=== PATIENT | male | born 1950 | race Caucasian/White ===

== ENCOUNTER 2023-02-21 07:40 | Outpatient (CLI) | payer MEDICARE, BC | END 2023-02-21 07:41 | disposition home or self-care (01) | LOC: CSHULT 07:40 | PROVIDERS: ATTEND Family Medicine | DX: Z13.6 Encounter for screening for cardiovascular disorders (principal) | CPT/HCPCS: 76706 ==

== ENCOUNTER 2023-08-13 07:51 | Outpatient (CLI) | payer MEDICARE, BC ==
[2023-08-13] MEDS ORDERED: Iopamidol 370 76% 100 ML VIAL ONE (08:55)
== END 2023-08-13 07:52 | disposition home or self-care (01) ==
LOC: CSHCT 07:51
PROVIDERS: ATTEND Family Medicine
DX: R10.9 Unspecified abdominal pain (principal); N28.1 Cyst of kidney, acquired; K76.89 Other specified diseases of liver; Z98.890 Other specified postprocedural states; K44.9 Diaphragmatic hernia without obstruction or gangrene
CPT/HCPCS: 74178; 82565; Q9967

== ENCOUNTER 2024-02-20 10:49 | Outpatient (CLI) | payer MEDICARE, BC ==
[2024-02-20 12:34] LABS: Hematocrit 40.4 % (38.8-50.0); Hemoglobin 13.2 g/dL (13.5-17.5); Mean Corpuscular HGB CONC 32.7 g/dL (32.0-36.0); Mean Corpuscular Hemoglobin 31.1 pg (27.0-33.0); Mean Corpuscular Volume 95.3 fL (81.2-95.1); Platelet Count 202 10x3/uL (150-450); RBC Distribution Width 12.4 % (11.5-14.5); Red Blood Cell (RBC) Count 4.24 10x6/uL (4.32-5.72); White Blood Cell (WBC) Count 5.5 10x3/uL (3.5-10.5)
[2024-02-20 12:47] LABS: Anion Gap 11 mmol/L (10-20); BUN (Urea Nitrogen) 14 mg/dL (8.4-25.7); Calc. Creatinine Clearance 0 mL/min (70-130); Calcium 9.2 mg/dL (7.8-10.44); Carbon Dioxide 28 mmol/L (23-31); Chloride 108 mmol/L (98-107); Estimated GFR 94; Glucose 84 mg/dL (83-110); Potassium 4.2 mmol/L (3.5-5.1); Sodium 143 mmol/L (136-145)
== END 2024-02-20 10:50 | disposition home or self-care (01) ==
LOC: CSHLAB 10:49
PROVIDERS: ATTEND Specialist
DX: Z01.818 Encounter for other preprocedural examination (principal)
CPT/HCPCS: 80048; 85027; 93005; 93010

== ENCOUNTER 2024-02-27 10:11 | Day surgery (SDC) | payer MEDICARE, BC ==
[2024-02-20 11:22] VITALS: BMI 34.5
[2024-02-27] MEDS ORDERED: AFRIN NASAL MIST 15 ML BOT ONE ×2 (10:58→13:01)
[2024-02-27] MEDS ORDERED: Oxymetazoline HCl 0.05% ( 15 ML ) ONE (11:20)
[2024-02-27] MEDS ORDERED: Famotidine/PF 20 mg/2ml Vial ONE (12:13)
[2024-02-27] MEDS ORDERED: EPINEPHrine 1 MG/ML VIAL ONE ×2 (13:01→14:18)
[2024-02-27] MEDS ORDERED: Lidocaine 1% w/Epinephrine 1:200K 30 ML VIAL ONE (13:02)
[2024-02-27] MEDS ORDERED: Mupirocin 2% Ointment 22 GM Tube ONE (13:02)
[2024-02-27] MEDS ORDERED: PROPOFOL 20 ML ONE (13:15)
[2024-02-27] MEDS ORDERED: fentaNYL 50 mcg/mL 1 mL Vial ONE ×3 (13:15→14:56)
[2024-02-27] MEDS ORDERED: SUCCINYLCHOLINE/SOD CL,ISO/PF 200 MG/10 ML SYRINGE FS ONE (13:29)
[2024-02-27] MEDS ORDERED: Glycopyrrolate 0.2 MG/ML 5 ML SYRINGE ONE (13:37)
[2024-02-27] MEDS ORDERED: ePHEDrine Sulfate 50 MG/10 ML VIAL ONE (13:50)
[2024-02-27] MEDS ORDERED: PHENYLEPHRINE-NS 100 MCG/ML 10 ML SYRINGE ONE (13:55)
[2024-02-27] MEDS ORDERED: Ondansetron PF 4 MG/2 ML Vial ONE (14:00)
[2024-02-27] MEDS ORDERED: Labetalol HCl 100 MG/20 ML VIAL ONE (15:31)
[2024-02-27] MEDS ORDERED: HYDROcodone/Acetaminophen 5/325 mg Tablet ONE (16:18)
== END 2024-02-27 16:55 | disposition home or self-care (01) ==
LOC: CSHSDC 10:11
PROVIDERS: ATTEND Specialist
PROC: 09BM8ZZ Excision of Nasal Septum, Via Natural or Artificial Opening Endoscopic (ICD-10-PCS; principal; 2024-02-27)
PROC: 09TL8ZZ Resection of Nasal Turbinate, Via Natural or Artificial Opening Endoscopic (ICD-10-PCS; 2024-02-27)
PROC: 09TV8ZZ Resection of Left Ethmoid Sinus, Via Natural or Artificial Opening Endoscopic (ICD-10-PCS; 2024-02-27)
PROC: 09TQ8ZZ Resection of Right Maxillary Sinus, Via Natural or Artificial Opening Endoscopic (ICD-10-PCS; 2024-02-27)
PROC: 09TR8ZZ Resection of Left Maxillary Sinus, Via Natural or Artificial Opening Endoscopic (ICD-10-PCS; 2024-02-27)
PROC: 09TS8ZZ Resection of Right Frontal Sinus, Via Natural or Artificial Opening Endoscopic (ICD-10-PCS; 2024-02-27)
PROC: 09TT8ZZ Resection of Left Frontal Sinus, Via Natural or Artificial Opening Endoscopic (ICD-10-PCS; 2024-02-27)
PROC: 09TU8ZZ Resection of Right Ethmoid Sinus, Via Natural or Artificial Opening Endoscopic (ICD-10-PCS; 2024-02-27)
DX: J32.8 Other chronic sinusitis (principal); J34.3 Hypertrophy of nasal turbinates; J34.2 Deviated nasal septum; Z79.82 Long term (current) use of aspirin; Z79.899 Other long term (current) drug therapy
CPT/HCPCS: 30140; 30520; 31253; 31256; 61782; J0171; J2405; J2704; J3010; J3490